=== PATIENT | female | born 1940 | race African-American/Black ===

== ENCOUNTER 2020-12-15 20:24 | Inpatient (IN) | payer MEDICARE, BC ==
[~2020-12-15] VITALS: Ht 167.6 cm; Wt 105.8 kg
[2020-12-15] MEDS ORDERED: AMLODIPINE 10MG TABLET PO ONE (21:15)
[2020-12-15 22:12] LABS: BASOPHILS % 0.8 % (0.0-2.0); EOSINOPHILS % 2.8 % (0.0-5.0); MEAN CORPUSCULAR HEMOGLOBIN 28.4 pg (28.0-32.0); MEAN CORPUSCULAR VOLUME 86.3 fL (81.0-99.0); MEAN PLATELET VOLUME 7.2 fl (7.4-10.4); MONOCYTES % 4.6 % (2.0-8.0); NEUTROPHILS % 80.8 % (40.0-76.0); PLATELET 212 x1000/uL (130-400); RED CELL DISTRIBUTION WIDTH 22.6 % (11.6-14.6)
[2020-12-15 22:16] LABS: HEMATOCRIT. 16.4 % (36.0-48.0); HEMOGLOBIN. 5.4 g/dL (12.0-16.0)
[2020-12-15 22:20] LABS: CHLORIDE 111 mEq/L (98-107)
[2020-12-15 22:32] LABS: CLARITY URINE CLOUDY (CLEAR); COLOR URINE YELLOW (YELLOW); KETONES URINE NEGATIVE (NEGATIVE); LEUKOCYTE ESTERASE URINE NEGATIVE (NEGATIVE); NITRITE URINE NEGATIVE (NEGATIVE); OCCULT BLOOD URINE 1+ (NEGATIVE); PROTEIN URINE 3+ (NEGATIVE); SPECIFIC GRAVITY URINE 1.017 (1.005-1.030); UROBILINOGEN URINE 0.2 E.U./dL (0.2-1.0)
[2020-12-15 22:56] LABS: PLATELET ESTIMATE NORMAL
[2020-12-16] VITALS (27 sets, daily range): BP systolic 118–190; BP diastolic 40–90
[2020-12-16] MEDS ORDERED: ONDANSETRON HCL 4MG/2ML INJ IV PRN (01:30)
[2020-12-16] MEDS ORDERED: ACETAMINOPHEN 325MG TABLET PO PRN (01:30)
[2020-12-16] MEDS ORDERED: DEXTROSE 50% WATER 50ML SYRINGE IV PRN (01:30)
[2020-12-16] MEDS ORDERED: SODIUM CHLORIDE 0.9% 1,000 ML IV SCH (01:30)
[2020-12-16] MEDS ORDERED: DIPHENHYDRAMINE 50MG/ML VIAL IV PRN (01:30)
[2020-12-16] MEDS: CLONIDINE 0.1MG TABLET PO PRN (06:54)
[2020-12-16] MEDS: INSULIN LISPRO 100 UNITS/ML SUBCUT SCH ×4 (07:50→21:00)
[2020-12-16] MEDS: BLOOD SUGAR DIAGNOSTIC STRIP TEST SCH ×4 (07:50→21:09)
[2020-12-16 08:18] LABS: MEAN CORPUSCULAR HEMOGLOBIN 30.2 pg (28.0-32.0); MEAN CORPUSCULAR VOLUME 86.6 fL (81.0-99.0); PLATELET 160 x1000/uL (130-400); RED BLOOD CELL COUNT 2.11 mill/uL (4.2-5.4); RED CELL DISTRIBUTION WIDTH 18.6 % (11.6-14.6)
[2020-12-16 08:22] LABS: TOTAL IRON BINDING CAPACITY 251 ug/dL (250-450)
[2020-12-16 08:27] LABS: HEMOGLOBIN 6.4 g/dL (12.0-16.0)
[2020-12-16 08:28] LABS: HEMATOCRIT 18.3 % (36.0-48.0)
[2020-12-16] MEDS: AMLODIPINE 5MG TABLET PO SCH ×2 (09:49→21:18)
[2020-12-16] MEDS ORDERED: LOSARTAN POTASSIUM 50 MG TABLET PO SCH (14:00)
[2020-12-16] MEDS: SODIUM CHLORIDE 0.9% 1,000 ML IV SCH (15:59)
[2020-12-16 16:37] LABS: HEMATOCRIT 21.5 % (36.0-48.0); HEMOGLOBIN 7.3 g/dL (12.0-16.0); MEAN CORPUSCULAR HEMOGLOBIN 29.5 pg (28.0-32.0); MEAN CORPUSCULAR VOLUME 86.5 fL (81.0-99.0); PLATELET 155 x1000/uL (130-400); RED BLOOD CELL COUNT 2.48 mill/uL (4.2-5.4); RED CELL DISTRIBUTION WIDTH 17.8 % (11.6-14.6)
[2020-12-16 17:11] LABS: CREATINE KINASE 193 IU/L (26-192)
[2020-12-17] VITALS (18 sets, daily range): BP systolic 101–184; BP diastolic 49–85
[2020-12-17] MEDS: SODIUM CHLORIDE 0.9% 1,000 ML IV SCH ×2 (00:23→09:49)
[2020-12-17 05:35] LABS: BASOPHILS % 0.8 % (0.0-2.0); HEMATOCRIT. 21.7 % (36.0-48.0); HEMOGLOBIN. 7.3 g/dL (12.0-16.0); LYMPHOCYTES % 7.9 % (20.0-50.0); MEAN CORPUSCULAR HEMOGLOBIN 28.5 pg (28.0-32.0); MEAN CORPUSCULAR VOLUME 84.1 fL (81.0-99.0); MEAN PLATELET VOLUME 7.1 fl (7.4-10.4); NEUTROPHILS % 82.3 % (40.0-76.0); PLATELET 148 x1000/uL (130-400); RED BLOOD CELL COUNT 2.57 mill/uL (4.2-5.4); RED CELL DISTRIBUTION WIDTH 18.1 % (11.6-14.6)
[2020-12-17 06:15] LABS: PHOSPHORUS 5.8 mg/dL (2.5-4.9)
[2020-12-17] MEDS: CLONIDINE 0.1MG TABLET PO PRN (06:22)
[2020-12-17] MEDS: BLOOD SUGAR DIAGNOSTIC STRIP TEST SCH ×4 (07:52→20:12)
[2020-12-17] MEDS: INSULIN LISPRO 100 UNITS/ML SUBCUT SCH ×4 (08:00→20:12)
[2020-12-17] MEDS: AMLODIPINE 5MG TABLET PO SCH (09:03)
[2020-12-17] MEDS: HYDRALAZINE HCL 50MG TABLET PO SCH ×2 (13:40→21:21)
[2020-12-17] MEDS: CLONIDINE 0.1MG TABLET PO SCH ×2 (13:40→21:21)
[2020-12-17] MEDS ORDERED: SODIUM POLYSTYRENE SULFONATE 15 G/60 ML BOT PO SCH (15:00)
[2020-12-17 17:56] LABS: HEPATITIS B SURFACE ANTIGEN NEGATIVE
[2020-12-17] MEDS: SEVELAMER CARBONATE 800 MG TABLET PO SCH (18:00)
[2020-12-17] MEDS: AMLODIPINE 10MG TABLET PO SCH (20:26)
[2020-12-18] VITALS (26 sets, daily range): BP systolic 114–192; BP diastolic 45–94
[2020-12-18] MEDS: SODIUM CHLORIDE 0.9% 1,000 ML IV SCH ×2 (03:20→23:58)
[2020-12-18] MEDS: HYDRALAZINE HCL 50MG TABLET PO SCH ×3 (05:06→21:18)
[2020-12-18 05:15] LABS: BASOPHILS % 0.7 % (0.0-2.0); EOSINOPHILS % 3.1 % (0.0-5.0); HEMATOCRIT. 23.8 % (36.0-48.0); HEMOGLOBIN. 7.9 g/dL (12.0-16.0); LYMPHOCYTES % 8.2 % (20.0-50.0); MEAN CORPUSCULAR HEMOGLOBIN 28.9 pg (28.0-32.0); MEAN PLATELET VOLUME 7.3 fl (7.4-10.4); MONOCYTES % 6.1 % (2.0-8.0); NEUTROPHILS % 81.9 % (40.0-76.0); PLATELET 148 x1000/uL (130-400); RED BLOOD CELL COUNT 2.73 mill/uL (4.2-5.4); RED CELL DISTRIBUTION WIDTH 18.3 % (11.6-14.6)
[2020-12-18 05:24] LABS: PHOSPHORUS 6.1 mg/dL (2.5-4.9)
[2020-12-18 05:36] LABS: PROTHROMBIN TIME 10.7 sec (9.6-11.0)
[2020-12-18] MEDS ORDERED: CEFAZOLIN 1000MG PREMIX 50 ML IV ONE ×2 (06:45→07:10)
[2020-12-18] MEDS ORDERED: FENTANYL CITRATE/PF 50MCG/ML 2ML VIAL IV NR (07:10)
[2020-12-18] MEDS ORDERED: FENTANYL CITRATE/PF 50MCG/ML 2ML VIAL ONE (07:10)
[2020-12-18 07:11] LABS: *CREATININE RANDOM URINE 75.4 mg/dL (Not Estab.); MICROALBUMIN RANDOM URINE 1696.6 ug/mL (Not Estab.)
[2020-12-18] MEDS ORDERED: SODIUM BICARBONATE 4% (2.4MEQ) 5ML VIAL IV ONE (07:26)
[2020-12-18] MEDS ORDERED: LIDOCAINE HCL 1% 20ML VIAL (Pyxis) INJ ONE ×2 (07:26→08:20)
[2020-12-18] MEDS ORDERED: HEPARIN 1000 UNITS/ML 10ML ONE (07:27)
[2020-12-18] MEDS: BLOOD SUGAR DIAGNOSTIC STRIP TEST SCH ×4 (07:30→21:19)
[2020-12-18] MEDS: INSULIN LISPRO 100 UNITS/ML SUBCUT SCH ×4 (08:00→21:00)
[2020-12-18] MEDS ORDERED: CLINDAMYCIN 600MG PREMIX 50 ML IV NR (08:00)
[2020-12-18] MEDS: AMLODIPINE 10MG TABLET PO SCH ×2 (08:18→21:18)
[2020-12-18] MEDS: CLONIDINE 0.1MG TABLET PO SCH ×2 (08:18→21:18)
[2020-12-18] MEDS: SEVELAMER CARBONATE 800 MG TABLET PO SCH ×3 (08:57→18:22)
[2020-12-18 09:08] LABS: IMMUNOGLOBULIN A 285 mg/dL (64-422); IMMUNOGLOBULIN G 1825 mg/dL (586-1602); IMMUNOGLOBULIN M 30 mg/dL (26-217)
[2020-12-18 10:11] LABS: A/G RATIO 0.9 (0.7-1.7); ALBUMIN 3.3 g/dL (2.9-4.4); ALPHA-1-GLOBULIN 0.3 g/dL (0.0-0.4); ALPHA-2-GLOBULIN 0.5 g/dL (0.4-1.0); GAMMA GLOBULINS 1.9 g/dL (0.4-1.8); GLOBULIN TOTAL 3.7 g/dL (2.2-3.9); M-SPIKE Not Observed g/dL (Not Observed)
[2020-12-18] MEDS: ALLOPURINOL 100 MG TABLET PO SCH (15:00)
[2020-12-18] MEDS ORDERED: EPOETIN ALFA-EPBX 4,000 UNIT/ML VIAL SUBCUT SCH (21:00)
[2020-12-19] VITALS (12 sets, daily range): BP systolic 124–176; BP diastolic 64–99
[2020-12-19] MEDS: HYDRALAZINE HCL 50MG TABLET PO SCH ×3 (05:48→21:58)
[2020-12-19 06:12] LABS: MEAN CORPUSCULAR HEMOGLOBIN 29.1 pg (28.0-32.0); MEAN PLATELET VOLUME 7.4 fl (7.4-10.4); PLATELET 139 x1000/uL (130-400); RED CELL DISTRIBUTION WIDTH 18.3 % (11.6-14.6)
[2020-12-19 06:49] LABS: PHOSPHORUS 3.9 mg/dL (2.5-4.9)
[2020-12-19] MEDS: BLOOD SUGAR DIAGNOSTIC STRIP TEST SCH ×2 (07:30→12:30)
[2020-12-19 07:53] LABS: HEMOGLOBIN. 7.3 g/dL (12.0-16.0)
[2020-12-19] MEDS: INSULIN LISPRO 100 UNITS/ML SUBCUT SCH ×2 (08:00→13:00)
[2020-12-19] MEDS: ALLOPURINOL 100 MG TABLET PO SCH (08:26)
[2020-12-19] MEDS: AMLODIPINE 10MG TABLET PO SCH ×2 (08:27→20:47)
[2020-12-19] MEDS: CLONIDINE 0.1MG TABLET PO SCH ×2 (08:27→20:46)
[2020-12-19] MEDS: SEVELAMER CARBONATE 800 MG TABLET PO SCH ×3 (08:43→17:24)
[2020-12-19] MEDS: SODIUM CHLORIDE 0.9% 1,000 ML IV SCH (11:12)
[2020-12-19 12:20] LABS: PLATELET ESTIMATE NORMAL
[2020-12-19 17:06] LABS: ANTI-MYELOPEROXIDASE AB < 9.0 U/mL (0.0-9.0); ANTI-PROTEINASE 3 ABS < 3.5 U/mL (0.0-3.5)
[2020-12-19] MEDS: ACETAMINOPHEN 325MG TABLET PO PRN (17:25)
[2020-12-19] MEDS: LORATADINE 10MG TABLET PO SCH (17:25)
[2020-12-20] VITALS (12 sets, daily range): BP systolic 133–185; BP diastolic 58–91
[2020-12-20] MEDS: CLONIDINE 0.1MG TABLET PO PRN ×2 (02:13→18:18)
[2020-12-20] MEDS: HYDRALAZINE HCL 50MG TABLET PO SCH ×3 (05:50→22:45)
[2020-12-20 06:48] LABS: BASOPHILS % 0.8 % (0.0-2.0); EOSINOPHILS % 3.3 % (0.0-5.0); HEMOGLOBIN. 7.3 g/dL (12.0-16.0); LYMPHOCYTES % 7.4 % (20.0-50.0); MEAN CORPUSCULAR HEMOGLOBIN 29.7 pg (28.0-32.0); MEAN CORPUSCULAR VOLUME 84.6 fL (81.0-99.0); MEAN PLATELET VOLUME 7.4 fl (7.4-10.4); MONOCYTES % 7.7 % (2.0-8.0); NEUTROPHILS % 80.8 % (40.0-76.0); PLATELET 135 x1000/uL (130-400); RED BLOOD CELL COUNT 2.44 mill/uL (4.2-5.4); RED CELL DISTRIBUTION WIDTH 18.7 % (11.6-14.6)
[2020-12-20 07:00] LABS: PHOSPHORUS 4.7 mg/dL (2.5-4.9)
[2020-12-20] MEDS: ACETAMINOPHEN 325MG TABLET PO PRN ×2 (07:04→20:30)
[2020-12-20 07:38] LABS: HEMATOCRIT. 20.7 % (36.0-48.0)
[2020-12-20] MEDS: SEVELAMER CARBONATE 800 MG TABLET PO SCH ×3 (09:08→17:37)
[2020-12-20] MEDS: CLONIDINE 0.1MG TABLET PO SCH ×2 (09:08→20:20)
[2020-12-20] MEDS: AMLODIPINE 10MG TABLET PO SCH ×2 (09:09→20:20)
[2020-12-20] MEDS: ALLOPURINOL 100 MG TABLET PO SCH (09:09)
[2020-12-20] MEDS: LORATADINE 10MG TABLET PO SCH (17:37)
[2020-12-21] VITALS (13 sets, daily range): BP systolic 108–166; BP diastolic 42–121
[2020-12-21] MEDS: HYDRALAZINE HCL 50MG TABLET PO SCH ×3 (06:06→21:41)
[2020-12-21 06:48] LABS: BASOPHILS % 0.7 % (0.0-2.0); EOSINOPHILS % 3.4 % (0.0-5.0); LYMPHOCYTES % 7.4 % (20.0-50.0); MEAN CORPUSCULAR HEMOGLOBIN 29.3 pg (28.0-32.0); MEAN CORPUSCULAR VOLUME 85.2 fL (81.0-99.0); MEAN PLATELET VOLUME 7.4 fl (7.4-10.4); MONOCYTES % 7.7 % (2.0-8.0); NEUTROPHILS % 80.8 % (40.0-76.0); PLATELET 133 x1000/uL (130-400); RED BLOOD CELL COUNT 2.29 mill/uL (4.2-5.4); RED CELL DISTRIBUTION WIDTH 18.6 % (11.6-14.6)
[2020-12-21 06:50] LABS: PHOSPHORUS 4.9 mg/dL (2.5-4.9)
[2020-12-21 08:00] LABS: HEMOGLOBIN. 6.7 g/dL (12.0-16.0)
[2020-12-21 08:01] LABS: HEMATOCRIT. 19.5 % (36.0-48.0)
[2020-12-21] MEDS: ALLOPURINOL 100 MG TABLET PO SCH (10:14)
[2020-12-21] MEDS: SEVELAMER CARBONATE 800 MG TABLET PO SCH ×3 (10:14→19:01)
[2020-12-21] MEDS: CLONIDINE 0.1MG TABLET PO SCH ×2 (10:17→21:40)
[2020-12-21] MEDS: AMLODIPINE 10MG TABLET PO SCH ×2 (10:17→21:40)
[2020-12-21] MEDS ORDERED: TEMAZEPAM 15MG CAPSULE PO PRN (10:30)
[2020-12-21 13:10] LABS: ATYPICAL P-ANCA <1:20 titer (Neg:<1:20); CYTOPLASMIC C-ANCA <1:20 titer (Neg:<1:20); PERINUCLEAR P-ANCA <1:20 titer (Neg:<1:20)
[2020-12-21 15:42] LABS: HEMOGLOBIN 8.6 g/dL (12.0-16.0)
[2020-12-21] MEDS: LORATADINE 10MG TABLET PO SCH (19:01)
[2020-12-21] MEDS ORDERED: EPOETIN ALFA-EPBX 10,000 UNIT/ML VIAL SUBCUT SCH (21:00)
[2020-12-21] MEDS: METOPROLOL TARTRATE 25MG TABLET PO SCH (21:40)
[2020-12-21] MEDS: ACETAMINOPHEN 325MG TABLET PO PRN (22:55)
[2020-12-22] VITALS (13 sets, daily range): BP systolic 124–156; BP diastolic 41–86
[2020-12-22 04:56] LABS: HEMATOCRIT. 24.1 % (36.0-48.0); HEMOGLOBIN. 8.3 g/dL (12.0-16.0); MEAN CORPUSCULAR HEMOGLOBIN 29.3 pg (28.0-32.0); MEAN CORPUSCULAR VOLUME 85.4 fL (81.0-99.0); PLATELET 146 x1000/uL (130-400); RED BLOOD CELL COUNT 2.83 mill/uL (4.2-5.4); RED CELL DISTRIBUTION WIDTH 17.5 % (11.6-14.6)
[2020-12-22 05:15] LABS: PHOSPHORUS 3.8 mg/dL (2.5-4.9)
[2020-12-22] MEDS: HYDRALAZINE HCL 50MG TABLET PO SCH ×3 (05:15→22:27)
[2020-12-22] MEDS: SEVELAMER CARBONATE 800 MG TABLET PO SCH ×3 (08:02→17:55)
[2020-12-22] MEDS: ALLOPURINOL 100 MG TABLET PO SCH (08:03)
[2020-12-22] MEDS: CLONIDINE 0.1MG TABLET PO SCH ×2 (08:03→22:27)
[2020-12-22] MEDS: METOPROLOL TARTRATE 25MG TABLET PO SCH ×2 (08:03→22:26)
[2020-12-22] MEDS: AMLODIPINE 10MG TABLET PO SCH ×2 (08:03→22:26)
[2020-12-22] MEDS ORDERED: MAGNESIUM 1 G PREMIX 100 ML IV NR (11:30)
[2020-12-22] MEDS: COLCHICINE 0.6MG TABLET PO SCH (15:29)
[2020-12-22] MEDS ORDERED: METHYLPREDNISOLONE SOD SUCC 40 MG/ML VIAL IV NR (15:30)
[2020-12-22 17:01] LABS: PLATELET ESTIMATE NORMAL
[2020-12-22] MEDS: LORATADINE 10MG TABLET PO SCH (17:55)
[2020-12-23] VITALS (10 sets, daily range): BP systolic 132–163; BP diastolic 69–102
[2020-12-23] MEDS: ACETAMINOPHEN 325MG TABLET PO PRN ×2 (01:12→13:51)
[2020-12-23] MEDS: HYDRALAZINE HCL 50MG TABLET PO SCH ×2 (06:49→13:51)
[2020-12-23 07:12] LABS: HEMATOCRIT. 25.9 % (36.0-48.0); HEMOGLOBIN. 8.7 g/dL (12.0-16.0); MEAN CORPUSCULAR HEMOGLOBIN 29.1 pg (28.0-32.0); MEAN CORPUSCULAR VOLUME 86.7 fL (81.0-99.0); MEAN PLATELET VOLUME 7.3 fl (7.4-10.4); PLATELET 164 x1000/uL (130-400); RED BLOOD CELL COUNT 2.99 mill/uL (4.2-5.4); RED CELL DISTRIBUTION WIDTH 17.7 % (11.6-14.6)
[2020-12-23] MEDS: SEVELAMER CARBONATE 800 MG TABLET PO SCH ×2 (08:08→13:51)
[2020-12-23] MEDS: AMLODIPINE 10MG TABLET PO SCH (08:08)
[2020-12-23] MEDS: COLCHICINE 0.6MG TABLET PO SCH (08:08)
[2020-12-23] MEDS: METOPROLOL TARTRATE 25MG TABLET PO SCH (08:08)
[2020-12-23] MEDS: CLONIDINE 0.1MG TABLET PO SCH (08:08)
[2020-12-23] MEDS: ALLOPURINOL 100 MG TABLET PO SCH (08:08)
[2020-12-23 14:34] LABS: PLATELET ESTIMATE NORMAL
[2020-12-23] MEDS ORDERED: HYDRALAZINE HCL 100MG TABLET PO SCH (22:00)
== END 2020-12-23 17:05 | DRG 673 ==
LOC: ER 20:24 → 5EST 22:57 → EDBD 22:57 → EDBEDREQ 22:58 → EDBEDREQSVC 22:58 → EDBEDREQTM 22:58 → ENRESERV 23:04 → CANRESERV 23:04
PROVIDERS: ADMIT Internal Medicine; ATTEND Internal Medicine
PROC: 30233N1 Transfusion of Nonautologous Red Blood Cells into Peripheral Vein, Percutaneous Approach (ICD-10-PCS; 2020-12-16)
PROC: 0JH63XZ Insertion of Tunneled Vascular Access Device into Chest Subcutaneous Tissue and Fascia, Percutaneous Approach (ICD-10-PCS; principal; 2020-12-18)
PROC: 02HV33Z Insertion of Infusion Device into Superior Vena Cava, Percutaneous Approach (ICD-10-PCS; 2020-12-18)
PROC: B5181ZA Fluoroscopy of Superior Vena Cava using Low Osmolar Contrast, Guidance (ICD-10-PCS; 2020-12-18)
PROC: 5A1D70Z Performance of Urinary Filtration, Intermittent, Less than 6 Hours Per Day (ICD-10-PCS; 2020-12-18)
PROC: 5A1D70Z Performance of Urinary Filtration, Intermittent, Less than 6 Hours Per Day (ICD-10-PCS; 2020-12-21)
DX: I13.11 Hypertensive heart and chronic kidney disease without heart failure, with stage 5 chronic kidney disease, or end stage renal disease (principal); N18.6 End stage renal disease; N17.9 Acute kidney failure, unspecified; D63.8 Anemia in other chronic diseases classified elsewhere; E11.22 Type 2 diabetes mellitus with diabetic chronic kidney disease; M10.9 Gout, unspecified; R62.7 Adult failure to thrive; F41.9 Anxiety disorder, unspecified; Z20.822 Contact with and (suspected) exposure to COVID-19; J30.9 Allergic rhinitis, unspecified; E78.5 Hyperlipidemia, unspecified; Z90.710 Acquired absence of both cervix and uterus; Z98.41 Cataract extraction status, right eye; Z98.42 Cataract extraction status, left eye; Z79.899 Other long term (current) drug therapy; Z68.37 Body mass index [BMI] 37.0-37.9, adult; N28.89 Other specified disorders of kidney and ureter
CPT/HCPCS: 36415; 36558; 71045; 73630; 76770; 76937; 77001; 80048; 80053; 81003; 82043; 82550; 82570; 82784; 82962; 83036; 83520; 83540; 83550; 83735; 83880; 83935; 84100; 84155; 84165; 84300; 84484; 84550; 85014; 85018; 85025; 85027; 85651; 86141; 86160; 86256; 86334; 86705; 86706; 86709; 86803; 86850; 86900; 86920; 87340; 93005; 97110; 97162; 97165; 97530; 99152; 99153; 99285; C1750; C1769; C1887; C1893; J0690; J0885; J1644; J2920; J3010; J3475; J3490; J7030; P9016; U0003; U0005; G0500

== ENCOUNTER 2020-12-23 17:25 | Inpatient (IN) | payer MEDICARE, BC ==
[~2020-12-23] VITALS: Ht 167.6 cm; Wt 106.1 kg
[2020-12-23 18:31] VITALS: BP 160/70
[2020-12-23] MEDS ORDERED: ACETAMINOPHEN 325MG TABLET PO PRN (19:15)
[2020-12-23] MEDS ORDERED: DEXTROSE 50% WATER 50ML SYRINGE IV PRN (19:15)
[2020-12-23] MEDS ORDERED: CLONIDINE 0.1MG TABLET PO PRN (19:15)
[2020-12-23] MEDS ORDERED: TEMAZEPAM 15MG CAPSULE PO PRN (19:30)
[2020-12-23 20:00] VITALS: BP 120/44
[2020-12-23] MEDS: METOPROLOL TARTRATE 25MG TABLET PO SCH (20:49)
[2020-12-23] MEDS: CLONIDINE 0.1MG TABLET PO SCH (20:49)
[2020-12-23] MEDS: AMLODIPINE 10MG TABLET PO SCH (20:50)
[2020-12-23] MEDS: EPOETIN ALFA-EPBX 10,000 UNIT/ML VIAL SUBCUT SCH (20:50)
[2020-12-23] MEDS: HYDRALAZINE HCL 50MG TABLET PO SCH (22:11)
[2020-12-24] MEDS: ACETAMINOPHEN 325MG TABLET PO PRN ×2 (03:49→22:06)
[2020-12-24] MEDS: HYDRALAZINE HCL 50MG TABLET PO SCH ×3 (05:26→22:06)
[2020-12-24 07:32] VITALS: BP 141/51
[2020-12-24 08:01] LABS: BASOPHILS % 0.5 % (0.0-2.0); EOSINOPHILS % 2.1 % (0.0-5.0); HEMATOCRIT. 23.9 % (36.0-48.0); HEMOGLOBIN. 8.2 g/dL (12.0-16.0); LYMPHOCYTES % 8.1 % (20.0-50.0); MEAN CORPUSCULAR HEMOGLOBIN 29.4 pg (28.0-32.0); MEAN CORPUSCULAR VOLUME 85.7 fL (81.0-99.0); MONOCYTES % 6.9 % (2.0-8.0); NEUTROPHILS % 82.4 % (40.0-76.0); PLATELET 189 x1000/uL (130-400); RED BLOOD CELL COUNT 2.79 mill/uL (4.2-5.4); RED CELL DISTRIBUTION WIDTH 17.6 % (11.6-14.6)
[2020-12-24 08:14] LABS: PHOSPHORUS 4.9 mg/dL (2.5-4.9)
[2020-12-24] MEDS: CLONIDINE 0.1MG TABLET PO SCH ×2 (08:19→22:06)
[2020-12-24] MEDS: COLCHICINE 0.6MG TABLET PO SCH (08:20)
[2020-12-24] MEDS: LORATADINE 10MG TABLET PO SCH (08:20)
[2020-12-24] MEDS: SEVELAMER CARBONATE 800 MG TABLET PO SCH ×3 (08:21→17:53)
[2020-12-24] MEDS: AMLODIPINE 10MG TABLET PO SCH ×2 (08:21→22:05)
[2020-12-24] MEDS: METOPROLOL TARTRATE 25MG TABLET PO SCH ×2 (08:22→22:06)
[2020-12-24] MEDS: ALLOPURINOL 100 MG TABLET PO SCH (08:22)
[2020-12-24] MEDS ORDERED: PNEUMOCOCCAL 23-VAL P-SAC VAC 0.5 ML IM ONE (10:00)
[2020-12-24 20:00] VITALS: BP 154/55
[2020-12-24 22:00] VITALS: BP 149/61
[2020-12-25] MEDS ORDERED: BISACODYL 5MG TABLET PO PRN (00:30)
[2020-12-25] MEDS ORDERED: LACTULOSE 20G/30ML UDC PO SCH (00:30)
[2020-12-25] MEDS: HYDRALAZINE HCL 50MG TABLET PO SCH ×3 (05:39→21:12)
[2020-12-25 07:49] VITALS: BP 138/54
[2020-12-25] MEDS: AMLODIPINE 10MG TABLET PO SCH ×2 (08:23→21:11)
[2020-12-25] MEDS: ALLOPURINOL 100 MG TABLET PO SCH (08:23)
[2020-12-25] MEDS: LORATADINE 10MG TABLET PO SCH (08:23)
[2020-12-25] MEDS: COLCHICINE 0.6MG TABLET PO SCH (08:23)
[2020-12-25] MEDS: SEVELAMER CARBONATE 800 MG TABLET PO SCH ×3 (08:24→17:37)
[2020-12-25] MEDS: CLONIDINE 0.1MG TABLET PO SCH ×2 (08:24→21:12)
[2020-12-25] MEDS: METOPROLOL TARTRATE 25MG TABLET PO SCH ×2 (08:24→21:12)
[2020-12-25 20:00] VITALS: BP 142/49
[2020-12-25] MEDS: EPOETIN ALFA-EPBX 10,000 UNIT/ML VIAL SUBCUT SCH (21:13)
[2020-12-26 01:53] VITALS: BP 132/57
[2020-12-26] MEDS: HYDRALAZINE HCL 50MG TABLET PO SCH ×2 (05:46→13:27)
[2020-12-26 08:20] VITALS: BP 146/55
[2020-12-26 08:38] LABS: PHOSPHORUS 2.7 mg/dL (2.5-4.9)
[2020-12-26 08:47] LABS: BASOPHILS % 0.6 % (0.0-2.0); EOSINOPHILS % 3.8 % (0.0-5.0); HEMATOCRIT. 27.3 % (36.0-48.0); HEMOGLOBIN. 9.1 g/dL (12.0-16.0); LYMPHOCYTES % 8.8 % (20.0-50.0); MEAN CORPUSCULAR HEMOGLOBIN 29.5 pg (28.0-32.0); MEAN CORPUSCULAR VOLUME 88.1 fL (81.0-99.0); MEAN PLATELET VOLUME 7.5 fl (7.4-10.4); NEUTROPHILS % 76.8 % (40.0-76.0); PLATELET 202 x1000/uL (130-400); RED CELL DISTRIBUTION WIDTH 18.1 % (11.6-14.6)
[2020-12-26] MEDS: LORATADINE 10MG TABLET PO SCH (09:19)
[2020-12-26] MEDS: SEVELAMER CARBONATE 800 MG TABLET PO SCH ×3 (09:19→17:09)
[2020-12-26] MEDS: METOPROLOL TARTRATE 25MG TABLET PO SCH (09:19)
[2020-12-26] MEDS: COLCHICINE 0.6MG TABLET PO SCH (09:19)
[2020-12-26] MEDS: AMLODIPINE 10MG TABLET PO SCH (09:19)
[2020-12-26] MEDS: ALLOPURINOL 100 MG TABLET PO SCH (09:20)
[2020-12-26] MEDS: CLONIDINE 0.1MG TABLET PO SCH (09:20)
[2020-12-26] MEDS ORDERED: ZOLPIDEM TARTRATE 5MG TABLET PO PRN (16:00)
[2020-12-26 20:00] VITALS: BP 148/49
[2020-12-27] MEDS: METOPROLOL TARTRATE 25MG TABLET PO SCH ×3 (01:40→20:55)
[2020-12-27] MEDS: CLONIDINE 0.1MG TABLET PO SCH ×3 (01:40→21:00)
[2020-12-27] MEDS: HYDRALAZINE HCL 50MG TABLET PO SCH ×4 (01:40→22:00)
[2020-12-27] MEDS: AMLODIPINE 10MG TABLET PO SCH ×3 (01:41→20:56)
[2020-12-27] MEDS: ACETAMINOPHEN 325MG TABLET PO PRN ×2 (04:43→20:54)
[2020-12-27 08:20] VITALS: BP 133/63
[2020-12-27] MEDS: LORATADINE 10MG TABLET PO SCH (09:21)
[2020-12-27] MEDS: COLCHICINE 0.6MG TABLET PO SCH (09:21)
[2020-12-27] MEDS: SEVELAMER CARBONATE 800 MG TABLET PO SCH ×2 (09:21→13:12)
[2020-12-27] MEDS: FLUTICASONE PROPIONATE 50MCG/SPRAY BOTTLE BOTHNSTRLS SCH (09:21)
[2020-12-27] MEDS: ALLOPURINOL 100 MG TABLET PO SCH (09:22)
[2020-12-27 12:53] VITALS: BP 144/56
[2020-12-27 20:00] VITALS: BP 149/69
[2020-12-28] MEDS: ACETAMINOPHEN 325MG TABLET PO PRN (01:25)
[2020-12-28] MEDS: HYDRALAZINE HCL 50MG TABLET PO SCH ×2 (05:55→13:16)
[2020-12-28 07:48] VITALS: BP 149/65
[2020-12-28] MEDS: COLCHICINE 0.6MG TABLET PO SCH (08:41)
[2020-12-28] MEDS: METOPROLOL TARTRATE 25MG TABLET PO SCH ×2 (08:41→21:08)
[2020-12-28] MEDS: CLONIDINE 0.1MG TABLET PO SCH ×2 (08:41→21:00)
[2020-12-28] MEDS: AMLODIPINE 10MG TABLET PO SCH ×2 (08:41→21:07)
[2020-12-28] MEDS: LORATADINE 10MG TABLET PO SCH (08:41)
[2020-12-28] MEDS: ALLOPURINOL 100 MG TABLET PO SCH (08:41)
[2020-12-28] MEDS: FLUTICASONE PROPIONATE 50MCG/SPRAY BOTTLE BOTHNSTRLS SCH (08:43)
[2020-12-28 14:55] LABS: HEPATITIS B SURFACE ANTIGEN NEGATIVE
[2020-12-28 17:15] LABS: HEPATITIS B SURFACE ANTIGEN NEGATIVE
[2020-12-28 20:00] VITALS: BP 150/65
[2020-12-28] MEDS: EPOETIN ALFA-EPBX 10,000 UNIT/ML VIAL SUBCUT SCH (21:09)
[2020-12-29] MEDS: HYDRALAZINE HCL 50MG TABLET PO SCH ×3 (01:08→13:10)
[2020-12-29 07:18] LABS: BASOPHILS % 0.7 % (0.0-2.0); EOSINOPHILS % 5.2 % (0.0-5.0); MEAN CORPUSCULAR HEMOGLOBIN 28.8 pg (28.0-32.0); MEAN CORPUSCULAR VOLUME 86.5 fL (81.0-99.0); MEAN PLATELET VOLUME 7.6 fl (7.4-10.4); MONOCYTES % 9.7 % (2.0-8.0); NEUTROPHILS % 73.4 % (40.0-76.0); PLATELET 201 x1000/uL (130-400); RED BLOOD CELL COUNT 3.12 mill/uL (4.2-5.4); RED CELL DISTRIBUTION WIDTH 17.9 % (11.6-14.6)
[2020-12-29 07:42] LABS: PHOSPHORUS 3.5 mg/dL (2.5-4.9)
[2020-12-29 08:20] VITALS: BP 143/51
[2020-12-29] MEDS: CLONIDINE 0.1MG TABLET PO SCH ×2 (08:55→21:00)
[2020-12-29] MEDS: METOPROLOL TARTRATE 25MG TABLET PO SCH ×2 (08:55→22:06)
[2020-12-29] MEDS: FLUTICASONE PROPIONATE 50MCG/SPRAY BOTTLE BOTHNSTRLS SCH (08:55)
[2020-12-29] MEDS: COLCHICINE 0.6MG TABLET PO SCH (08:55)
[2020-12-29] MEDS: ALLOPURINOL 100 MG TABLET PO SCH (08:55)
[2020-12-29] MEDS: AMLODIPINE 10MG TABLET PO SCH ×2 (08:55→22:07)
[2020-12-29] MEDS: LORATADINE 10MG TABLET PO SCH (08:55)
[2020-12-29] MEDS: ACETAMINOPHEN 325MG TABLET PO PRN (14:14)
[2020-12-29 20:00] VITALS: BP 130/68
[2020-12-29] MEDS ORDERED: HEPARIN SODIUM 1,000 UNIT/1ML VIAL IV NR (20:00)
[2020-12-29 20:35] VITALS: BP 130/63
[2020-12-30] MEDS: HYDRALAZINE HCL 50MG TABLET PO SCH ×4 (00:06→22:00)
[2020-12-30] MEDS: ACETAMINOPHEN 325MG TABLET PO PRN ×3 (00:50→21:45)
[2020-12-30 07:00] VITALS: BP 127/76
[2020-12-30] MEDS: AMLODIPINE 10MG TABLET PO SCH ×2 (08:51→21:44)
[2020-12-30] MEDS: FLUTICASONE PROPIONATE 50MCG/SPRAY BOTTLE BOTHNSTRLS SCH (08:51)
[2020-12-30] MEDS: COLCHICINE 0.6MG TABLET PO SCH (08:51)
[2020-12-30] MEDS: CLONIDINE 0.1MG TABLET PO SCH ×2 (08:51→21:00)
[2020-12-30] MEDS: ALLOPURINOL 100 MG TABLET PO SCH (08:52)
[2020-12-30] MEDS: METOPROLOL TARTRATE 25MG TABLET PO SCH ×2 (08:52→21:00)
[2020-12-30] MEDS: LORATADINE 10MG TABLET PO SCH (08:52)
[2020-12-30 13:25] VITALS: BP 147/54
[2020-12-30 20:00] VITALS: BP 122/60
[2020-12-31] MEDS: HYDRALAZINE HCL 50MG TABLET PO SCH ×3 (06:01→22:32)
[2020-12-31 07:22] LABS: BASOPHILS % 1.1 % (0.0-2.0); EOSINOPHILS % 3.8 % (0.0-5.0); HEMOGLOBIN. 9.2 g/dL (12.0-16.0); LYMPHOCYTES % 13.5 % (20.0-50.0); MEAN CORPUSCULAR VOLUME 88.3 fL (81.0-99.0); MEAN PLATELET VOLUME 7.4 fl (7.4-10.4); MONOCYTES % 10.5 % (2.0-8.0); NEUTROPHILS % 71.1 % (40.0-76.0); PLATELET 215 x1000/uL (130-400); RED BLOOD CELL COUNT 3.17 mill/uL (4.2-5.4); RED CELL DISTRIBUTION WIDTH 18.7 % (11.6-14.6)
[2020-12-31 07:35] LABS: PHOSPHORUS 3.4 mg/dL (2.5-4.9)
[2020-12-31] MEDS: COLCHICINE 0.6MG TABLET PO SCH (08:21)
[2020-12-31] MEDS: LORATADINE 10MG TABLET PO SCH (08:21)
[2020-12-31] MEDS: ALLOPURINOL 100 MG TABLET PO SCH (08:21)
[2020-12-31 08:22] VITALS: BP 139/54
[2020-12-31] MEDS: METOPROLOL TARTRATE 25MG TABLET PO SCH ×2 (08:24→22:32)
[2020-12-31] MEDS: CLONIDINE 0.1MG TABLET PO SCH ×2 (08:25→22:32)
[2020-12-31] MEDS: AMLODIPINE 10MG TABLET PO SCH ×2 (08:25→22:32)
[2020-12-31] MEDS: ACETAMINOPHEN 325MG TABLET PO PRN (13:30)
[2020-12-31 20:00] VITALS: BP 158/64
[2020-12-31 21:22] LABS: HEPATITIS B SURFACE AB < 3.1 mIU/mL
[2021-01-01] MEDS: ACETAMINOPHEN 325MG TABLET PO PRN (05:23)
[2021-01-01] MEDS: HYDRALAZINE HCL 50MG TABLET PO SCH ×3 (05:23→21:13)
[2021-01-01 07:50] VITALS: BP 127/57
[2021-01-01] MEDS: CLONIDINE 0.1MG TABLET PO SCH ×2 (10:06→21:13)
[2021-01-01] MEDS: COLCHICINE 0.6MG TABLET PO SCH (10:06)
[2021-01-01] MEDS: LORATADINE 10MG TABLET PO SCH (10:06)
[2021-01-01] MEDS: ALLOPURINOL 100 MG TABLET PO SCH (10:06)
[2021-01-01] MEDS: AMLODIPINE 10MG TABLET PO SCH ×2 (10:06→21:13)
[2021-01-01] MEDS: METOPROLOL TARTRATE 25MG TABLET PO SCH ×2 (10:06→21:13)
[2021-01-01 20:00] VITALS: BP 155/59
[2021-01-02] MEDS: HYDRALAZINE HCL 50MG TABLET PO SCH ×3 (05:29→22:00)
[2021-01-02 08:03] VITALS: BP 110/51
[2021-01-02] MEDS: METOPROLOL TARTRATE 25MG TABLET PO SCH ×2 (08:54→21:00)
[2021-01-02] MEDS: ALLOPURINOL 100 MG TABLET PO SCH (08:54)
[2021-01-02] MEDS: LORATADINE 10MG TABLET PO SCH (08:54)
[2021-01-02] MEDS: AMLODIPINE 10MG TABLET PO SCH ×2 (08:55→21:00)
[2021-01-02] MEDS: CLONIDINE 0.1MG TABLET PO SCH (08:55)
[2021-01-02] MEDS: COLCHICINE 0.6MG TABLET PO SCH (08:55)
[2021-01-02 11:07] LABS: BASOPHILS % 0.8 % (0.0-2.0); EOSINOPHILS % 3.6 % (0.0-5.0); HEMATOCRIT. 26.6 % (36.0-48.0); HEMOGLOBIN. 9.1 g/dL (12.0-16.0); LYMPHOCYTES % 9.5 % (20.0-50.0); MEAN CORPUSCULAR HEMOGLOBIN 29.7 pg (28.0-32.0); MEAN CORPUSCULAR VOLUME 86.8 fL (81.0-99.0); MEAN PLATELET VOLUME 7.6 fl (7.4-10.4); MONOCYTES % 10.6 % (2.0-8.0); NEUTROPHILS % 75.5 % (40.0-76.0); PLATELET 187 x1000/uL (130-400); RED BLOOD CELL COUNT 3.06 mill/uL (4.2-5.4); RED CELL DISTRIBUTION WIDTH 18.3 % (11.6-14.6)
[2021-01-02 11:15] LABS: CHLORIDE 104 mEq/L (98-107)
[2021-01-02 11:22] LABS: PHOSPHORUS 3.1 mg/dL (2.5-4.9)
[2021-01-02 18:47] LABS: CLARITY URINE CLOUDY (CLEAR); COLOR URINE YELLOW (YELLOW); KETONES URINE NEGATIVE (NEGATIVE); LEUKOCYTE ESTERASE URINE 2+ (NEGATIVE); NITRITE URINE NEGATIVE (NEGATIVE); OCCULT BLOOD URINE NEGATIVE (NEGATIVE); PH URINE 8.5 (4.5-8.0); PROTEIN URINE 3+ (NEGATIVE); SPECIFIC GRAVITY URINE 1.011 (1.005-1.030); UROBILINOGEN URINE 0.2 E.U./dL (0.2-1.0)
[2021-01-02 20:00] VITALS: BP 120/53
[2021-01-03] MEDS: ACETAMINOPHEN 325MG TABLET PO PRN (01:41)
[2021-01-03] MEDS: HYDRALAZINE HCL 50MG TABLET PO SCH ×3 (05:08→22:00)
[2021-01-03 07:47] VITALS: BP 134/53
[2021-01-03] MEDS: COLCHICINE 0.6MG TABLET PO SCH (09:10)
[2021-01-03] MEDS: METOPROLOL TARTRATE 25MG TABLET PO SCH ×2 (09:11→21:14)
[2021-01-03] MEDS: ALLOPURINOL 100 MG TABLET PO SCH (09:11)
[2021-01-03] MEDS: AMLODIPINE 10MG TABLET PO SCH ×2 (09:11→21:15)
[2021-01-03] MEDS: LORATADINE 10MG TABLET PO SCH (09:12)
[2021-01-03 20:00] VITALS: BP 141/55
[2021-01-04] MEDS: HYDRALAZINE HCL 50MG TABLET PO SCH ×2 (05:54→13:55)
[2021-01-04 07:48] VITALS: BP 143/52
[2021-01-04] MEDS: COLCHICINE 0.6MG TABLET PO SCH (08:26)
[2021-01-04] MEDS: LORATADINE 10MG TABLET PO SCH (08:26)
[2021-01-04] MEDS: AMLODIPINE 10MG TABLET PO SCH (08:26)
[2021-01-04] MEDS: METOPROLOL TARTRATE 25MG TABLET PO SCH (08:26)
[2021-01-04] MEDS: ALLOPURINOL 100 MG TABLET PO SCH (08:26)
[2021-01-04] MEDS: ACETAMINOPHEN 325MG TABLET PO PRN (12:34)
[2021-01-04 15:30] VITALS: BP 130/60
== END 2021-01-04 16:45 | disposition home health service (06) | DRG 947 ==
PROVIDERS: ADMIT Psychiatry & Neurology Neurology; ATTEND Internal Medicine
PROC: 5A1D70Z Performance of Urinary Filtration, Intermittent, Less than 6 Hours Per Day (ICD-10-PCS; principal; 2020-12-24)
PROC: 5A1D70Z Performance of Urinary Filtration, Intermittent, Less than 6 Hours Per Day (ICD-10-PCS; 2020-12-26)
PROC: 5A1D70Z Performance of Urinary Filtration, Intermittent, Less than 6 Hours Per Day (ICD-10-PCS; 2020-12-28)
PROC: 5A1D70Z Performance of Urinary Filtration, Intermittent, Less than 6 Hours Per Day (ICD-10-PCS; 2020-12-29)
PROC: 5A1D70Z Performance of Urinary Filtration, Intermittent, Less than 6 Hours Per Day (ICD-10-PCS; 2020-12-31)
PROC: 5A1D70Z Performance of Urinary Filtration, Intermittent, Less than 6 Hours Per Day (ICD-10-PCS; 2021-01-01)
PROC: 5A1D70Z Performance of Urinary Filtration, Intermittent, Less than 6 Hours Per Day (ICD-10-PCS; 2021-01-04)
DX: R53.81 Other malaise (principal); N18.6 End stage renal disease; N17.9 Acute kidney failure, unspecified; I12.0 Hypertensive chronic kidney disease with stage 5 chronic kidney disease or end stage renal disease; C64.1 Malignant neoplasm of right kidney, except renal pelvis; R62.7 Adult failure to thrive; D63.8 Anemia in other chronic diseases classified elsewhere; E11.22 Type 2 diabetes mellitus with diabetic chronic kidney disease; J30.9 Allergic rhinitis, unspecified; M10.9 Gout, unspecified; N28.89 Other specified disorders of kidney and ureter; Z60.2 Problems related to living alone; F39 Unspecified mood [affective] disorder; E66.01 Morbid (severe) obesity due to excess calories; Z90.710 Acquired absence of both cervix and uterus; Z99.2 Dependence on renal dialysis; Z88.0 Allergy status to penicillin; Z68.37 Body mass index [BMI] 37.0-37.9, adult
CPT/HCPCS: 36415; 71045; 71046; 80048; 80053; 81003; 83735; 84100; 85025; 86705; 86706; 86709; 86803; 87077; 87186; 87340; 90732; 93970; 97110; 97116; 97162; 97166; 97530; 97535; 97542; J0885; J1644; U0003; U0005

== ENCOUNTER 2021-05-01 13:48 | Inpatient (IN) | payer MEDICARE, BC ==
[~2021-05-01] VITALS: Ht 165.1 cm; Wt 99.8 kg
[2021-05-01] MEDS ORDERED: SODIUM CHLORIDE 0.9% 250 ML IV ONE (14:15)
[2021-05-01 15:25] LABS: BASOPHILS % 0.7 % (0.0-2.0); EOSINOPHILS % 1.5 % (0.0-5.0); HEMATOCRIT. 38.6 % (36.0-48.0); HEMOGLOBIN. 12.6 g/dL (12.0-16.0); LYMPHOCYTES % 10.4 % (20.0-50.0); MEAN CORPUSCULAR HEMOGLOBIN 30.1 pg (28.0-32.0); MEAN CORPUSCULAR VOLUME 92.6 fL (81.0-99.0); MEAN PLATELET VOLUME 7.2 fl (7.4-10.4); MONOCYTES % 6.6 % (2.0-8.0); NEUTROPHILS % 80.8 % (40.0-76.0); PLATELET 217 x1000/uL (130-400); RED BLOOD CELL COUNT 4.17 mill/uL (4.2-5.4); RED CELL DISTRIBUTION WIDTH 15.8 % (11.6-14.6)
[2021-05-01 15:30] LABS: CHLORIDE 99 mEq/L (98-107)
[2021-05-01 15:35] LABS: ETHANOL BLOOD < 10 mg/dL
[2021-05-01] MEDS ORDERED: CALCIUM GLUCONATE 100MG/ML 10ML VIAL IV ONE (16:30)
[2021-05-01] MEDS ORDERED: SODIUM POLYSTYRENE SULFONATE 15 G/60 ML BOT PO ONE (16:30)
[2021-05-01] MEDS ORDERED: DIPHENHYDRAMINE 50MG/ML VIAL IV PRN (19:15)
[2021-05-01] MEDS ORDERED: MAGNESIUM/ALUMINUM HYDROXIDE/SIMETHICONE 30ML UDC PO PRN (19:15)
[2021-05-01] MEDS ORDERED: CLONIDINE 0.1MG TABLET PO PRN (19:15)
[2021-05-01] MEDS ORDERED: ONDANSETRON HCL 4MG/2ML INJ IV PRN (19:15)
[2021-05-01] MEDS ORDERED: MAGNESIUM HYDROXIDE 400MG/5ML 30ML UDC PO PRN (19:15)
[2021-05-01] MEDS ORDERED: ACETAMINOPHEN 325MG TABLET PO PRN ×2 (19:15)
[2021-05-01] MEDS ORDERED: TEMAZEPAM 15MG CAPSULE PO PRN (19:15)
[2021-05-01] MEDS ORDERED: IPRATROPIUM/ALBUTEROL 0.5-3(2.5)MG/3ML NEB HHN PRN (19:15)
[2021-05-01] MEDS ORDERED: SODIUM POLYSTYRENE SULFONATE 15 G/60 ML BOT PO NR (19:30)
[2021-05-01] MEDS: METOPROLOL TARTRATE 25MG TABLET PO SCH (20:55)
[2021-05-01] MEDS: SODIUM CHLORIDE 0.9% INJ 3ML FLUSH IVF SCH (21:43)
[2021-05-01] MEDS: HYDRALAZINE HCL 50MG TABLET PO SCH (21:43)
[2021-05-02 02:29] VITALS: BP 108/67
[2021-05-02 04:00] VITALS: BP 176/87
[2021-05-02] MEDS: HYDRALAZINE HCL 50MG TABLET PO SCH ×2 (05:14→13:38)
[2021-05-02] MEDS: SODIUM CHLORIDE 0.9% INJ 3ML FLUSH IVF SCH ×2 (05:14→13:38)
[2021-05-02 08:00] VITALS: BP 145/67
[2021-05-02 08:11] LABS: BASOPHILS % 0.8 % (0.0-2.0); EOSINOPHILS % 2.2 % (0.0-5.0); HEMATOCRIT. 33.4 % (36.0-48.0); HEMOGLOBIN. 11.3 g/dL (12.0-16.0); LYMPHOCYTES % 12.1 % (20.0-50.0); MEAN CORPUSCULAR HEMOGLOBIN 31.3 pg (28.0-32.0); MEAN CORPUSCULAR VOLUME 92.2 fL (81.0-99.0); MEAN PLATELET VOLUME 7.4 fl (7.4-10.4); MONOCYTES % 7.6 % (2.0-8.0); NEUTROPHILS % 77.3 % (40.0-76.0); PLATELET 182 x1000/uL (130-400); RED BLOOD CELL COUNT 3.62 mill/uL (4.2-5.4); RED CELL DISTRIBUTION WIDTH 15.6 % (11.6-14.6)
[2021-05-02 08:37] LABS: CHLORIDE 105 mEq/L (98-107)
[2021-05-02 08:50] LABS: PHOSPHORUS 4.2 mg/dL (2.5-4.9)
[2021-05-02] MEDS ORDERED: ALLOPURINOL 100 MG TABLET PO SCH (09:00)
[2021-05-02] MEDS ORDERED: LORATADINE 10MG TABLET PO SCH (09:00)
[2021-05-02] MEDS: METOPROLOL TARTRATE 25MG TABLET PO SCH (10:01)
[2021-05-02 12:00] VITALS: BP 104/62
[2021-05-02] MEDS ORDERED: INFLUENZA VACCINE 05/PF 0.5 ML SYRINGE IM ONE (12:00)
[2021-05-02] MEDS ORDERED: PNEUMOCOCCAL 23-VAL P-SAC VAC 0.5 ML IM ONE (12:00)
[2021-05-02 14:57] VITALS: BP 150/80
[2021-05-02 16:00] VITALS: BP 104/62
== END 2021-05-02 16:50 | disposition home or self-care (01) | DRG 291 ==
LOC: ER 14:00 → EDBEDREQTM 17:01 → EDBEDREQ 17:01 → EDBEDREQSVC 17:01 → MICUSO 21:04 → 5WST 05-02 00:59
PROVIDERS: ADMIT Internal Medicine; ATTEND Internal Medicine
DX: I13.2 Hypertensive heart and chronic kidney disease with heart failure and with stage 5 chronic kidney disease, or end stage renal disease (principal); I50.33 Acute on chronic diastolic (congestive) heart failure; N18.6 End stage renal disease; Z20.822 Contact with and (suspected) exposure to COVID-19; D63.8 Anemia in other chronic diseases classified elsewhere; E11.22 Type 2 diabetes mellitus with diabetic chronic kidney disease; E66.01 Morbid (severe) obesity due to excess calories; E78.5 Hyperlipidemia, unspecified; E87.5 Hyperkalemia; M10.9 Gout, unspecified; N28.89 Other specified disorders of kidney and ureter; Z88.0 Allergy status to penicillin; Z68.36 Body mass index [BMI] 36.0-36.9, adult; Z82.49 Family history of ischemic heart disease and other diseases of the circulatory system; Z90.49 Acquired absence of other specified parts of digestive tract; Z90.710 Acquired absence of both cervix and uterus; Z99.2 Dependence on renal dialysis
CPT/HCPCS: 36415; 71045; 80048; 80053; 80320; 82962; 83605; 83735; 83880; 84100; 84145; 84484; 85025; 87426; 93005; 99291; J0610; J7050; G0480

== ENCOUNTER 2024-09-17 14:45 | Inpatient (IN) | payer BC, MEDICARE ==
[~2024-09-17] VITALS: Ht 170.2 cm; Wt 78.9 kg
[~2024-09-17 14:45] MED LIST: AMLO5TAB88 PO; ATOR20TA65 MT; CALC667C NG; CRES10 PO; DICL75TA5 PO; DOCU-422 PO; EPOE40007 SUBCUT; FAMO20TA8 PO; GABA-529 PO; HYDR25TA78 PO; LORA-249 PO; LOSA50TA41 PO; METO-539 PO
[2024-09-17 14:46] VITALS: O2SAT 100
[2024-09-17 15:45] LABS: BASOPHILS % 0.5 % (0.0-2.0); EOSINOPHILS % 1.2 % (0.0-5.0); HEMATOCRIT. 39.5 % (36.0-48.0); HEMOGLOBIN. 12.8 g/dL (12.0-16.0); LYMPHOCYTES % 9.9 % (20.0-50.0); MEAN CORPUSCULAR HEMOGLOBIN 30.2 pg (28.0-32.0); MEAN CORPUSCULAR HGB CONC 32.5 g/dL (31.0-37.0); MEAN PLATELET VOLUME 8.8 fl (7.4-10.4); MONOCYTES % 6.2 % (2.0-8.0); NEUTROPHILS % 82.2 % (40.0-76.0); PLATELET 212 x1000/uL (130-400); RED BLOOD CELL COUNT 4.24 mill/uL (4.2-5.4); RED CELL DISTRIBUTION WIDTH 17.4 % (11.6-14.6); WHITE BLOOD COUNT 9.9 x1000/uL (4.5-11.0)
[2024-09-17 15:51] LABS: CHLORIDE 97 mEq/L (98-107); POTASSIUM 3.5 mEq/L (3.5-5.1); PROTHROMBIN TIME 10.6 sec (9.6-11.0); SODIUM 137 mEq/L (136-145)
[2024-09-17 15:52] LABS: CALCIUM 9.5 mg/dL (8.7-10.4); CARBON DIOXIDE 31 mEq/L (21-32)
[2024-09-17 15:57] LABS: GLUCOSE 147 mg/dL (70-105); UREA NITROGEN BLOOD 15 mg/dL (9-23)
[2024-09-17 15:58] LABS: ETHANOL BLOOD < 10 mg/dL (<10)
[2024-09-17 16:01] LABS: TROPONIN I HIGH SENSITIVITY 70 ng/L (3.0-34)
[2024-09-17 18:42] VITALS: BP 158/87; PULSE 97; RESP 16; TEMP 36.8; O2SAT 99
[2024-09-17] MEDS ORDERED: ACETAMINOPHEN 325MG TABLET PO PRN (19:30)
[2024-09-17] MEDS ORDERED: CLONIDINE 0.1MG TABLET PO PRN (19:30)
[2024-09-17] MEDS ORDERED: HYDROCODONE/ACETAMINOPHEN 5/325MG TABLET PO PRN (19:30)
[2024-09-17] MEDS ORDERED: ONDANSETRON HCL 4MG/2ML INJ IV PRN (19:30)
[2024-09-17] MEDS ORDERED: IPRATROPIUM/ALBUTEROL 0.5-3(2.5)MG/3ML NEB NEB PRN (19:30)
[2024-09-17] MEDS ORDERED: MAGNESIUM/ALUMINUM HYDROXIDE/SIMETHICONE 30ML UDC PO PRN (19:30)
[2024-09-17 20:00] VITALS: BP 133/70; PULSE 85; PULSE 87; RESP 18; RESP 20; TEMP 35.8; TEMP 36.8; O2SAT 96
[2024-09-17] MEDS ORDERED: NALOXONE HCL 0.4MG/ML VIAL IV PRN (21:00)
[2024-09-17] MEDS: METOPROLOL TARTRATE 50MG TABLET PO SCH (22:38)
[2024-09-17] MEDS: ENOXAPARIN 30MG/0.3ML SYR SUBCUT SCH (22:38)
[2024-09-17] MEDS: ATORVASTATIN CALCIUM 40MG TABLET PO SCH (22:38)
[2024-09-17] MEDS: HYDRALAZINE HCL 25MG TABLET PO SCH (22:39)
[2024-09-18 00:16] VITALS: BP 122/78; PULSE 69; RESP 18; TEMP 36.8; O2SAT 96
[2024-09-18 01:20] LABS: TROPONIN I HIGH SENSITIVITY 108 ng/L (3.0-34)
[2024-09-18 04:00] VITALS: BP 122/62; PULSE 64; RESP 18; TEMP 37; O2SAT 97
[2024-09-18 07:16] LABS: POTASSIUM 3.9 mEq/L (3.5-5.1)
[2024-09-18 07:22] LABS: EOSINOPHILS % 1.5 % (0.0-5.0); HEMATOCRIT. 38.1 % (36.0-48.0); HEMOGLOBIN. 12.4 g/dL (12.0-16.0); LYMPHOCYTES % 19.4 % (20.0-50.0); MEAN CORPUSCULAR HEMOGLOBIN 30.5 pg (28.0-32.0); MEAN CORPUSCULAR HGB CONC 32.5 g/dL (31.0-37.0); MEAN CORPUSCULAR VOLUME 93.8 fL (81.0-99.0); MEAN PLATELET VOLUME 9.2 fl (7.4-10.4); MONOCYTES % 7.4 % (2.0-8.0); NEUTROPHILS % 70.7 % (40.0-76.0); PLATELET 185 x1000/uL (130-400); RED BLOOD CELL COUNT 4.06 mill/uL (4.2-5.4); RED CELL DISTRIBUTION WIDTH 17.8 % (11.6-14.6); WHITE BLOOD COUNT 8.4 x1000/uL (4.5-11.0)
[2024-09-18 08:00] VITALS: BP 112/62; PULSE 80; RESP 18; TEMP 36.1; O2SAT 100
[2024-09-18 08:31] LABS: CREATININE 5.1 mg/dL (0.6-1.0)
[2024-09-18] MEDS ORDERED: ASPIRIN 81MG EC TABLET PO SCH (09:00)
[2024-09-18] MEDS: LOSARTAN 50 MG TABLET PO SCH (09:41)
[2024-09-18] MEDS: AMLODIPINE 5MG TABLET PO SCH (09:42)
[2024-09-18] MEDS: CALCIUM ACETATE 667MG CAPSULE NG SCH ×2 (09:42→12:40)
[2024-09-18] MEDS: GABAPENTIN 100MG CAPSULE PO SCH (09:43)
[2024-09-18] MEDS: LORAZEPAM 0.5MG TABLET PO SCH (09:43)
[2024-09-18] MEDS: PANTOPRAZOLE SODIUM 40 MG/VIAL IV SCH (09:47)
[2024-09-18 12:00] VITALS: BP 108/61; PULSE 62; RESP 18; TEMP 36.5
[2024-09-18 16:00] VITALS: BP 115/93; PULSE 67; RESP 18; TEMP 36.7; O2SAT 98
[2024-09-18 20:00] VITALS: BP 142/91; PULSE 63; RESP 16; TEMP 36.2; O2SAT 95
[2024-09-19] VITALS (8 sets, daily range): BP systolic 97–132; BP diastolic 55–77; PULSE 62–82; RESP 17–18; TEMP 36.3–36.6696; O2SAT 95–98
[2024-09-19 06:33] LABS: BASOPHILS % 0.7 % (0.0-2.0); EOSINOPHILS % 1.6 % (0.0-5.0); HEMATOCRIT. 37.5 % (36.0-48.0); HEMOGLOBIN. 12.3 g/dL (12.0-16.0); LYMPHOCYTES % 18.9 % (20.0-50.0); MEAN CORPUSCULAR HEMOGLOBIN 30.2 pg (28.0-32.0); MEAN CORPUSCULAR HGB CONC 32.8 g/dL (31.0-37.0); MEAN CORPUSCULAR VOLUME 92.1 fL (81.0-99.0); MEAN PLATELET VOLUME 9.3 fl (7.4-10.4); MONOCYTES % 8.4 % (2.0-8.0); NEUTROPHILS % 70.4 % (40.0-76.0); PLATELET 194 x1000/uL (130-400); RED BLOOD CELL COUNT 4.07 mill/uL (4.2-5.4); RED CELL DISTRIBUTION WIDTH 17.5 % (11.6-14.6); WHITE BLOOD COUNT 6.8 x1000/uL (4.5-11.0)
[2024-09-19 06:45] LABS: POTASSIUM 4.3 mEq/L (3.5-5.1)
[2024-09-19 06:46] LABS: CALCIUM 10.5 mg/dL (8.7-10.4)
[2024-09-19 06:54] LABS: PHOSPHORUS 6.9 mg/dL (2.5-4.9)
[2024-09-19 07:33] LABS: CREATININE 6.4 mg/dL (0.6-1.0)
[2024-09-19] MEDS: ENOXAPARIN 80MG/0.8ML SYR SUBCUT SCH (14:05)
[2024-09-19] MEDS: SEVELAMER CARBONATE 800 MG TABLET PO SCH (18:22)
[2024-09-20] VITALS: BP 143/60; PULSE 90; RESP 16; TEMP 36.3; O2SAT 94
[2024-09-20 06:03] LABS: BASOPHILS % 0.9 % (0.0-2.0); EOSINOPHILS % 0.6 % (0.0-5.0); HEMATOCRIT. 38.6 % (36.0-48.0); HEMOGLOBIN. 12.7 g/dL (12.0-16.0); MEAN CORPUSCULAR HEMOGLOBIN 30.1 pg (28.0-32.0); MEAN CORPUSCULAR HGB CONC 32.9 g/dL (31.0-37.0); MEAN CORPUSCULAR VOLUME 91.3 fL (81.0-99.0); MEAN PLATELET VOLUME 8.5 fl (7.4-10.4); MONOCYTES % 7.6 % (2.0-8.0); NEUTROPHILS % 81.9 % (40.0-76.0); PLATELET 187 x1000/uL (130-400); RED BLOOD CELL COUNT 4.23 mill/uL (4.2-5.4); RED CELL DISTRIBUTION WIDTH 17.7 % (11.6-14.6); WHITE BLOOD COUNT 4.3 x1000/uL (4.5-11.0)
[2024-09-20 06:06] LABS: POTASSIUM 4.3 mEq/L (3.5-5.1)
[2024-09-20 06:08] LABS: CALCIUM 9.9 mg/dL (8.7-10.4)
[2024-09-20 06:27] LABS: CREATININE 6.2 mg/dL (0.6-1.0)
[2024-09-20 08:00] VITALS: BP 136/67; PULSE 79; RESP 18; TEMP 36.2; O2SAT 98
[2024-09-20 12:10] VITALS: BP 128/68; PULSE 66; RESP 18; TEMP 36.6; O2SAT 98
[2024-09-20 16:00] VITALS: BP 120/78; PULSE 70; RESP 18; TEMP 36; O2SAT 98
[2024-09-20 20:00] VITALS: BP 142/73; PULSE 81; RESP 17; TEMP 36.2; O2SAT 95
[2024-09-21] VITALS (9 sets, daily range): BP systolic 103–142; BP diastolic 52–83; PULSE 58–84; RESP 16–20; TEMP 36.1–36.6696; O2SAT 94–99
[2024-09-21] MEDS ORDERED: APIX2.5T MT (11:26)
[2024-09-21] MEDS ORDERED: LIP40 PO (11:26)
[2024-09-21] MEDS ORDERED: ENOXAPARIN 30MG/0.3ML SYR SUBCUT SCH (12:15)
== END 2024-09-21 18:35 | disposition home health service (06) | DRG 91 ==
LOC: ER 14:45 → EDBEDREQ 17:03 → ENRESERV 17:41 → 8WST 17:51
PROVIDERS: ADMIT Internal Medicine; ATTEND Internal Medicine
PROC: 5A1D70Z Performance of Urinary Filtration, Intermittent, Less than 6 Hours Per Day (ICD-10-PCS; principal; 2024-09-19)
PROC: 5A1D70Z Performance of Urinary Filtration, Intermittent, Less than 6 Hours Per Day (ICD-10-PCS; 2024-09-21)
DX: G92.8 Other toxic encephalopathy (principal); N18.6 End stage renal disease; I13.2 Hypertensive heart and chronic kidney disease with heart failure and with stage 5 chronic kidney disease, or end stage renal disease; I50.9 Heart failure, unspecified; E11.22 Type 2 diabetes mellitus with diabetic chronic kidney disease; E11.42 Type 2 diabetes mellitus with diabetic polyneuropathy; F03.90 Unspecified dementia, unspecified severity, without behavioral disturbance, psychotic disturbance, mood disturbance, and anxiety; D64.9 Anemia, unspecified; I08.0 Rheumatic disorders of both mitral and aortic valves; Z99.2 Dependence on renal dialysis; G40.909 Epilepsy, unspecified, not intractable, without status epilepticus; I48.91 Unspecified atrial fibrillation; E21.3 Hyperparathyroidism, unspecified; K21.9 Gastro-esophageal reflux disease without esophagitis; I44.1 Atrioventricular block, second degree; T50.995A Adverse effect of other drugs, medicaments and biological substances, initial encounter; Z88.0 Allergy status to penicillin; Z88.6 Allergy status to analgesic agent; Z88.5 Allergy status to narcotic agent; Z86.73 Personal history of transient ischemic attack (TIA), and cerebral infarction without residual deficits; Z74.01 Bed confinement status; Z79.899 Other long term (current) drug therapy; Z79.82 Long term (current) use of aspirin; Z86.79 Personal history of other diseases of the circulatory system; Z82.49 Family history of ischemic heart disease and other diseases of the circulatory system; Y92.89 Other specified places as the place of occurrence of the external cause
CPT/HCPCS: 36415; 71045; 80048; 80061; 80320; 82962; 84100; 84484; 85025; 90935; 93005; 93306; 93970; 97162; 99291; A4606; J1650; J2470; G0480